=== PATIENT | female | born 1985 | race Caucasian/White ===

== ENCOUNTER 2017-02-20 19:31 | Emergency (ER) | payer OTHER | END 2017-02-20 19:53 | disposition left against medical advice (07) | LOC: UCCORT 19:31 | DX: R39.198 Other difficulties with micturition (principal); Z53.21 Procedure and treatment not carried out due to patient leaving prior to being seen by health care provider ==

== ENCOUNTER 2018-02-01 15:05 | Emergency (ER) | payer OTHER ==
--- NOTE | 2018-02-01 15:21 | UC ---
Throat Pain/Nasal Omero HPI - HPI Summary HPI Summary: 33 yo female presents with sinus pain/pressure/congestion for the last 7-8 days. Started with clear drainage and is now experiencing thick yellow and green discharge. Mild sore throat and dry cough. She gave 8 weeks ago - no longer breast feeding. She started taking claritin a few days ago with no relief. Denies fever, chills, SOB, chest pain, n/v. - History of Current Complaint Stated Complaint: SINUSES Time Seen by Provider: 02/01/18 15:20 Hx Obtained From: Patient Hx Last Menstrual Period: 12/29/12 Onset/Duration: Gradual Onset Severity: Moderate Pain Intensity: 5 Pain Scale Used: 0-10 Numeric Cough: Nonproductive - Allergies/Home Medications Allergies/Adverse Reactions: Allergies Allergy/AdvReac Type Severity Reaction Status Date / Time bacitracin Allergy Intermediate Rash Verified 02/01/18 15:24 Home Medications: Home Medications Vitamin TAB* 1 tab PO DAILY 02/01/18 [History Confirmed 02/01/18] PMH/Surg Hx/FS Hx/Imm Hx - Additional Past Medical History Additional PMH: None Previously Healthy: Yes - Surgical History Surgical History: Yes Surgery Procedure, Year, and Place: tonsilectomy - Family History Known Family History: Positive: None - Social History Occupation: Employed Full-time Lives: With Family Alcohol Use: Occasionally Substance Use Type: None Smoking Status (MU): Never Smoked Tobacco Review of Systems Constitutional: Negative Skin: Negative Eyes: Negative ENT: Sore Throat, Nasal Discharge, Sinus Congestion, Sinus Pain/Tenderness Respiratory: Negative Cardiovascular: Negative Gastrointestinal: Negative Neurovascular: Negative Neurological: Negative Psychological: Negative All Other Systems Reviewed And Are Negative: Yes Physical Exam - Summary Physical Exam Summary: GENERAL: NAD. WDWN. No pain distress. SKIN: No rashes, sores, lesions, or open wounds. HEENT: Head: AT/NC Eyes: EOM intact. Conjunctiva clear without inflammation or discharge. Ears: Hearing grossly normal. TMs intact, no bulging, erythema, or edema. Nose: Nasal mucosa mildly swollen and erythematous with yellow/ clear discharge. TTP maxillary and frontal sinus. Throat: Posterior oropharynx without exudates, erythema, or tonsillar enlargement. Uvula midline. NECK: Supple. Nontender. No lymphadenopathy. CHEST: CTAB. No r/r/w. No accessory muscle use. Breathing comfortably and in no distress. CV: RRR. Without m/r/g. Pulses intact. Brisk cap refill. NEURO: Alert. CN II-XII grossly intact. PSYCH: Age appropriate behavior. Triage Information Reviewed: Yes Vital Signs: Vital Signs: Temp Pulse Resp BP Pulse Ox 98.1 F 89 15 119/82 100 02/01/18 15:21 02/01/18 15:21 02/01/18 15:21 02/01/18 15:21 02/01/18 15:21 Throat Pain/Nasal Course/Dx - Course Course Of Treatment: Sinusitis. Pt says that amoxicillin does "not work for her " and she has taken zpak in the past with good relief. Will rx for this again today. - Differential Dx/Diagnosis Provider Diagnoses: Sinusitis Discharge - Sign-Out/Discharge Documenting (check all that apply): Discharge/Admit/Transfer - Discharge Plan Condition: Stable Disposition: HOME Prescriptions: Azithromycin TAB* [Zithromax TAB (Z-DOLLY) 250 mg #6 tabs] 2 tab PO .TODAY, THEN 1 DAILY #1 dolly Patient Education Materials: Sinusitis (ED) Referrals: Ana Hollis PA [Primary Care Provider] - Additional Instructions: If you develop a fever, shortness of breath, chest pain, new or worsening symptoms - please call your PCP or go to the ED. - Billing Disposition and Condition Condition: STABLE Disposition: Home
[2018-02-01 15:24] VITALS: BP 119/82
== END 2018-02-01 15:38 | disposition home or self-care (01) ==
LOC: UCCORT 15:05
DX: J32.9 Chronic sinusitis, unspecified (principal); Z88.1 Allergy status to other antibiotic agents
CPT/HCPCS: 99212; G0463